=== PATIENT | female | born 1950 | race Caucasian/White ===

== ENCOUNTER 2023-05-23 15:00 | Inpatient (IN) | payer MEDICARE, OTHER ==
[~2023-05-23] VITALS: Ht 160 cm; Wt 53.6 kg
[2023-05-23] MEDS ORDERED: iohexol 350MG/ML 100ml bottle IV ONE ×2 (15:04→17:35)
[2023-05-23 15:25] LABS: BASOPHILS # (AUTO) 0.1 X10'3 (0-0.2); BASOPHILS % (AUTO) 0.7 % (0-1); EOSINOPHILS # (AUTO) 0.1 X10'3 (0-0.9); EOSINOPHILS % (AUTO) 1.2 % (0-6); HEMATOCRIT 46.8 % (35.0-45.0); HEMOGLOBIN 15.6 g/dl (12.0-16.0); LYMPHOCYTES # (AUTO) 2.8 X10'3 (1.1-4.8); LYMPHOCYTES % (AUTO) 33.3 % (21-51); MEAN CORPUSCULAR HEMOGLOBIN 31.5 PG (27.0-31.0); MEAN CORPUSCULAR HGB CONC 33.4 g/dL (33.0-36.5); MEAN CORPUSCULAR VOLUME 94.3 FL (78-98); MEAN PLATELET VOLUME 8.3 FL (7.4-10.4); MONOCYTES # (AUTO) 0.5 X10'3 (0-0.9); MONOCYTES % (AUTO) 5.4 % (2-12); NEUTROPHILS # (AUTO) 5.1 X10'3 (1.8-7.7); NEUTROPHILS % (AUTO) 59.4 % (42-75); PLATELET COUNT 292 X10'3 (140-440); RED BLOOD COUNT 4.96 X10'6 (4.20-5.60); RED CELL DISTRIBUTION WIDTH 13.5 % (11.5-14.5); WHITE BLOOD COUNT 8.5 X10'3 (4.5-11.0)
[2023-05-23 15:44] LABS: ALANINE AMINOTRANSFERASE 24 U/L (12-78); ALBUMIN 4.3 G/DL (3.4-5.0); ALBUMIN/GLOBULIN RATIO 1.2 (1.1-1.5); ALKALINE PHOSPHATASE 90 IU/L (46-116); ANION GAP 11 (8-16); APTT 25 SECONDS (22-32); ASPARTATE AMINO TRANSFERASE 20 U/L (10-37); BILIRUBIN,TOTAL 0.5 MG/DL (0.1-1.0); BLOOD UREA NITROGEN 15 MG/DL (7-18); BUN/CREATININE RATIO 19.5 (10.0-20.0); CALCIUM 9.4 MG/DL (8.5-10.1); CHLORIDE 102 MMOL/L (99-107); CREATININE 0.77 MG/DL (0.40-0.90); GLUCOSE 100 MG/DL (70-104); POTASSIUM 3.9 MMOL/L (3.5-5.1); PROTHROMBIN TIME 10.7 SECONDS (9.0-12.0); SODIUM 138 MMOL/L (135-145); TOTAL CARBON DIOXIDE 24.7 MMOL/L (24-32); TOTAL PROTEIN 7.9 G/DL (6.4-8.2); eCRCL 56 ML/MIN; eGFR 74 ML/MIN
[2023-05-23 16:54] LABS: BILIRUBIN,URINE NEGATIVE (Neg); CLARITY,URINE CLEAR (Clear); COLOR,URINE STRAW (Yellow); GLUCOSE, URINE NEGATIVE (Neg); KETONES,URINE NEGATIVE (Neg); LEUKOCYTE ESTERASE ,URINE TRACE (Neg); NITRITES, URINE NEGATIVE (Neg); OCCULT BLOOD,URINE NEGATIVE (Neg); PH,URINE 6.5 (4.8-8.0); PROTEIN,URINE NEGATIVE (Neg); UROBILINOGEN,URINE 0.2 E.U/dL (0.2-1.0)
[2023-05-23 16:55] LABS: UA COLLECTION TYPE CLN CATCH MIDSTREAM
[2023-05-23 17:02] LABS: BACTERIA,URINE NONE SEEN /HPF (Neg); MUCUS STRANDS NONE SEEN /LPF (Neg); RBC,URINE NONE SEEN /HPF (0-2); SQUAMOUS EPITHELIAL CELL,UR NONE SEEN /LPF (FEW); WBC,URINE 0-4 /HPF (0-4)
[2023-05-23 17:07] LABS: URINE AMPHETAMINE SCREEN NEGATIVE (Neg); URINE BARBITUATE SCREEN NEGATIVE (Neg); URINE BENZODIAZEPINES SCREEN NEGATIVE (Neg); URINE CANNABINOID SCREEN POSITIVE (Neg); URINE COCAINE SCREEN NEGATIVE (Neg); URINE METHADONE SCREEN NEGATIVE (Neg); URINE OPIATE SCREEN NEGATIVE (Neg); URINE PHENCYCLIDINE SCREEN NEGATIVE (Neg)
[2023-05-23] MEDS ORDERED: clopidogrel 300mg tablet PO ONE (17:30)
[2023-05-23] MEDS ORDERED: potassium Cl 20 mEq SR tablet PO PRN ×2 (18:05)
[2023-05-23] MEDS ORDERED: acetaminophen 325mg tablet PO PRN ×2 (18:05)
[2023-05-23] MEDS ORDERED: ondansetron/PF 4mg/2ml inj IV PRN (18:05)
[2023-05-23] MEDS ORDERED: magnesium 4gm in 100ml NS 100 ML IV PRN (18:05)
[2023-05-23] MEDS ORDERED: potassium Cl 40MEQ/1/2NS 520ml 520 ML IV PRN (18:05)
[2023-05-23] MEDS ORDERED: magnesium Cl slow-release 64mg tablet PO PRN (18:05)
[2023-05-23] MEDS ORDERED: magnesium 2GM in 50ml NS 50 ML IV PRN (18:05)
[2023-05-23] MEDS ORDERED: aspirin 81mg tab.chew PO ONE (18:10)
[2023-05-23] MEDS: normal saline 1000ml 1,000 ML IV SCH (18:25)
[2023-05-23 19:19] LABS: HEMOGLOBIN A1C 5.4 % (4.5-6.2)
[2023-05-23] MEDS: K and/or MAG REPLACEMENT MC SCH (19:59)
[2023-05-23] MEDS ORDERED: enoxaparin 40mg/0.4ml syringe SQ SCH (20:00)
[2023-05-23] MEDS ORDERED: FLUT1BLS4 INH (21:08)
[2023-05-23] MEDS ORDERED: LISI10TA27 PO (21:08)
[2023-05-23] MEDS ORDERED: OMEP40CA21 PO (21:08)
[2023-05-24 01:50] VITALS: TEMP 97.6
[2023-05-24 03:30] LABS: ALANINE AMINOTRANSFERASE 21 U/L (12-78); ALBUMIN 3.4 G/DL (3.4-5.0); ALBUMIN/GLOBULIN RATIO 1.2 (1.1-1.5); ALKALINE PHOSPHATASE 72 IU/L (46-116); ANION GAP 9 (8-16); ASPARTATE AMINO TRANSFERASE 12 U/L (10-37); BILIRUBIN,TOTAL 0.4 MG/DL (0.1-1.0); BLOOD UREA NITROGEN 18 MG/DL (7-18); CHLORIDE 105 MMOL/L (99-107); CREATININE 0.82 MG/DL (0.40-0.90); GLUCOSE 97 MG/DL (70-104); SODIUM 138 MMOL/L (135-145); TOTAL CARBON DIOXIDE 24.5 MMOL/L (24-32); TOTAL PROTEIN 6.2 G/DL (6.4-8.2); eCRCL 53 ML/MIN; eGFR 69 ML/MIN
[2023-05-24 03:31] LABS: BASOPHILS # (AUTO) 0.1 X10'3 (0-0.2); EOSINOPHILS # (AUTO) 0.1 X10'3 (0-0.9); EOSINOPHILS % (AUTO) 1.9 % (0-6); HEMATOCRIT 40.5 % (35.0-45.0); HEMOGLOBIN 13.6 g/dl (12.0-16.0); LYMPHOCYTES # (AUTO) 2.7 X10'3 (1.1-4.8); LYMPHOCYTES % (AUTO) 41.4 % (21-51); MEAN CORPUSCULAR HEMOGLOBIN 31.7 PG (27.0-31.0); MEAN CORPUSCULAR HGB CONC 33.6 g/dL (33.0-36.5); MEAN CORPUSCULAR VOLUME 94.3 FL (78-98); MEAN PLATELET VOLUME 8.5 FL (7.4-10.4); MONOCYTES # (AUTO) 0.5 X10'3 (0-0.9); MONOCYTES % (AUTO) 7.7 % (2-12); NEUTROPHILS # (AUTO) 3.1 X10'3 (1.8-7.7); PLATELET COUNT 246 X10'3 (140-440); RED CELL DISTRIBUTION WIDTH 13.2 % (11.5-14.5); WHITE BLOOD COUNT 6.4 X10'3 (4.5-11.0)
[2023-05-24] MEDS ORDERED: clopidogrel 75mg tablet PO SCH (08:00)
[2023-05-24] MEDS: K and/or MAG REPLACEMENT MC SCH (08:00)
[2023-05-24] MEDS ORDERED: aspirin 81mg, enteric-coated 1 TAB TABLET.DR PO SCH (08:00)
[2023-05-24] MEDS: normal saline 1000ml 1,000 ML IV SCH (08:23)
[2023-05-24 10:09] LABS: CHOL/HDL RATIO 3.5 (0.00-4.99); CHOLESTEROL 144 MG/DL (0-200); HDL CHOLESTEROL 41 MG/DL (35-60); LDL CHOLESTEROL 94 MG/DL (50-100); TRIGLYCERIDES 52 MG/DL (20-135)
[2023-05-24 11:27] VITALS: BP 108/43; PULSE 61; RESP 17; O2SAT 98
[2023-05-24] MEDS ORDERED: ASPI-1071 PO (12:02)
[2023-05-24] MEDS ORDERED: NICO-731 TOP (12:02)
== END 2023-05-24 12:47 | disposition home or self-care (01) | DRG 74 ==
LOC: ER 15:01 → ED HOLD 18:06
PROVIDERS: ADMIT Internal Medicine; ATTEND Internal Medicine
PROC: B3251ZZ Computerized Tomography (CT Scan) of Bilateral Common Carotid Arteries using Low Osmolar Contrast (ICD-10-PCS; principal; 2023-05-23)
PROC: B32G1ZZ Computerized Tomography (CT Scan) of Bilateral Vertebral Arteries using Low Osmolar Contrast (ICD-10-PCS; 2023-05-23)
PROC: B32R1ZZ Computerized Tomography (CT Scan) of Intracranial Arteries using Low Osmolar Contrast (ICD-10-PCS; 2023-05-23)
PROC: B3281ZZ Computerized Tomography (CT Scan) of Bilateral Internal Carotid Arteries using Low Osmolar Contrast (ICD-10-PCS; 2023-05-23)
DX: G50.0 Trigeminal neuralgia (principal); F84.0 Autistic disorder; F41.9 Anxiety disorder, unspecified; I10 Essential (primary) hypertension; F17.210 Nicotine dependence, cigarettes, uncomplicated; G89.29 Other chronic pain; M54.9 Dorsalgia, unspecified; F32.A Depression, unspecified; Z79.82 Long term (current) use of aspirin; Z86.73 Personal history of transient ischemic attack (TIA), and cerebral infarction without residual deficits; Z79.899 Other long term (current) drug therapy
CPT/HCPCS: 36415; 70450; 70496; 70498; 70551; 71045; 80053; 80061; 80305; 81001; 82948; 83036; 85025; 85610; 85730; 99285; G0378; J1650; J3490; J7030; Q9967

== ENCOUNTER 2025-03-04 09:58 | Day surgery (SDC) | payer MEDICARE, MEDICAID ==
[~2025-03-04] VITALS: Ht 157.5 cm; Wt 51.3 kg
[~2025-03-04 09:58] MED LIST: ASPI-955 PO; CHOL100046 PO; FLUT1BLS4 INH; LISI10TA27 PO; MAGN500C4 PO; MULT-1085 PO; OMEP40CA21 PO; ringers solution, lacted 1,000 ML IV SCH
[2025-03-04] MEDS ORDERED: propofol inj 20 ML IV ONE ×2 (12:06)
[2025-03-04 12:14] VITALS: BP 132/70; PULSE 89; RESP 14; O2SAT 99
[2025-03-04 12:20] VITALS: BP 132/70; PULSE 168; RESP 17; O2SAT 99
[2025-03-04 12:30] VITALS: BP 135/67; PULSE 79; RESP 15; O2SAT 100
[2025-03-04 12:40] VITALS: BP 154/75; PULSE 72; RESP 15; O2SAT 95
[2025-03-04 12:50] VITALS: BP 155/75; PULSE 69; RESP 17; O2SAT 96
[2025-03-04 13:00] VITALS: BP 160/76; PULSE 67; RESP 15; O2SAT 95
[2025-03-05] MEDS ORDERED: ALBU18HF2 INH (16:52)
== END 2025-03-04 13:54 | disposition home or self-care (01) ==
LOC: GI LAB 09:58
PROVIDERS: ATTEND Internal Medicine Gastroenterology
DX: K92.1 Melena (principal); K57.30 Diverticulosis of large intestine without perforation or abscess without bleeding; I10 Essential (primary) hypertension; E78.5 Hyperlipidemia, unspecified; K21.9 Gastro-esophageal reflux disease without esophagitis; J44.9 Chronic obstructive pulmonary disease, unspecified; Z86.73 Personal history of transient ischemic attack (TIA), and cerebral infarction without residual deficits; Z79.82 Long term (current) use of aspirin; Z79.899 Other long term (current) drug therapy; Z90.710 Acquired absence of both cervix and uterus
CPT/HCPCS: 45378; A4620; J2704; J7120; Z7512; Z7610